=== PATIENT | female | born 1970 | race Two or more races ===

== ENCOUNTER 2020-04-07 16:11 | Inpatient (IN) | payer OTHER ==
[~2020-04-07] VITALS: Ht 157.5 cm; Wt 81.6 kg
[2020-04-24] MEDS ORDERED: PREVACID30 MG PO (15:33)
[2020-04-24] MEDS ORDERED: DICY20TA PO (15:34)
[2020-04-24] MEDS ORDERED: ANSAID PO (15:34)
[2020-04-24] MEDS ORDERED: PANADOL PO (15:35)
[2020-04-24] MEDS ORDERED: TRAMADOL PO (15:35)
[2020-05-01] MEDS ORDERED: ULTRAM50 MG PO (10:30)
[2020-05-01] MEDS ORDERED: TYLENOL ARTHRI650 MG PO (10:34)
[2020-05-01] MEDS ORDERED: FLURBIPROFEN100 MG (10:36)
[2020-05-04] MEDS ORDERED: ULTRAM50 MG PO (09:42)
[2020-05-04] MEDS ORDERED: LEVSIN/SL0.125 MG SL (09:42)
[2020-05-04] MEDS ORDERED: INTESTINEX680 M1 PO (09:43)
== END 2020-05-04 16:43 | disposition home or self-care (01) | DRG 331 ==
LOC: O/R 05-01 09:10 → SURH 05-01 11:00
PROVIDERS: ADMIT Surgery; ATTEND Surgery
PROC: 0DBN4ZZ Excision of Sigmoid Colon, Percutaneous Endoscopic Approach (ICD-10-PCS; 2020-05-01)
PROC: 07BC4ZX Excision of Pelvis Lymphatic, Percutaneous Endoscopic Approach, Diagnostic (ICD-10-PCS; 2020-05-01)
PROC: 0UT14ZZ Resection of Left Ovary, Percutaneous Endoscopic Approach (ICD-10-PCS; 2020-05-01)
PROC: 0DJD8ZZ Inspection of Lower Intestinal Tract, Via Natural or Artificial Opening Endoscopic (ICD-10-PCS; 2020-05-01)
PROC: 0DTP4ZZ Resection of Rectum, Percutaneous Endoscopic Approach (ICD-10-PCS; principal; 2020-05-01 15:00)
DX: K57.30 Diverticulosis of large intestine without perforation or abscess without bleeding (principal); D27.1 Benign neoplasm of left ovary; E66.8 Other obesity

== ENCOUNTER 2021-06-14 10:32 | Day surgery (SDC) | payer OTHER ==
[~2021-06-14 10:32] MED LIST: ANSAID PO; DICY20TA PO; FLURBIPROFEN100 MG; INTESTINEX680 M1 PO; LEVSIN/SL0.125 MG SL; PANADOL PO; PREVACID30 MG PO; TRAMADOL PO; TYLENOL ARTHRI650 MG PO; ULTRAM50 MG PO
== END 2021-06-14 14:50 | disposition home or self-care (01) ==
LOC: AMB-ENDOS 10:32
PROVIDERS: ATTEND Surgery
DX: D12.1 Benign neoplasm of appendix (principal); Z20.822 Contact with and (suspected) exposure to COVID-19